=== PATIENT | male | born 1930 | race Caucasian/White ===

== ENCOUNTER 2017-02-09 16:45 | Emergency (ER) | payer MEDICARE ==
[2017-02-09 17:31] VITALS: BP 140/68
[2017-02-09] MEDS ORDERED: Lidocaine 1% MPF wEPI 200,000* 30 ML SDV INJ ONE (17:57)
[2017-02-09] MEDS ORDERED: Tetan/Diph/Pertus SYR(Tdap)* 0.5 ML SYR(BOOSTRIX) use SYR IM ONE (17:58)
--- NOTE | 2017-02-09 18:03 | UC ---
Elbow Pain - HPI Summary HPI Summary: 86 yo male bumped and braided right elbow 2 days ago no red and swollen he is right handed unsure of last tetanus - History of Current Complaint Chief Complaint: UCUpperExtremity Stated Complaint: RIGHT ELBOW FLUID ACCUMULATION S/P FALL Time Seen by Provider: 02/09/17 17:30 Hx Obtained From: Patient Onset/Duration: Days Severity Initially: Mild Severity Currently: Mild Pain Intensity: 1 Pain Scale Used: 0-10 Numeric Location Of Pain: Is Discrete @ - right point of elbow Character: Dull Alleviating Factor(s): Rest Associated Signs And Symptoms: Positive: Swelling, Redness - Allergies/Home Medications Allergies/Adverse Reactions: Allergies Allergy/AdvReac Type Severity Reaction Status Date / Time No Known Allergies Allergy Verified 02/09/17 17:18 PMH/Surg Hx/FS Hx/Imm Hx Previously Healthy: Yes Cardiovascular History: Other Other Cardiovascular History: heart murmur Neurological History: CVA Cancer History: Prostate Cancer Other History Of: Negative For: HIV, Hepatitis B, Hepatitis C, Anticoagulant Therapy - Surgical History Surgical History: Yes Surgery Procedure, Year, and Place: prostate removed, hernia, gall bladder removed - Family History Known Family History: Positive: Hypertension, Diabetes - Social History Alcohol Use: Weekly Substance Use Type: None Smoking Status (MU): Never Smoked Tobacco - Immunization History Most Recent Influenza Vaccination: NONE Most Recent Tetanus Shot: unk Most Recent Pneumonia Vaccination: NONE Review of Systems Constitutional: Negative Skin: Negative Eyes: Negative ENT: Negative Respiratory: Negative Cardiovascular: Negative Gastrointestinal: Negative Genitourinary: Negative Motor: Negative Neurovascular: Negative Musculoskeletal: Arthralgia Neurological: Negative Psychological: Negative All Other Systems Reviewed And Are Negative: Yes Physical Exam Triage Information Reviewed: Yes Appearance: Well-Appearing, No Pain Distress, Well-Nourished Vital Signs: Initial Vital Signs Temp 98.7 F 02/09/17 17:20 Pulse 58 02/09/17 17:20 Resp 18 02/09/17 17:20 BP 140/68 02/09/17 17:20 Pulse Ox 98 02/09/17 17:20 Vital Signs Reviewed: Yes Eyes: Positive: Conjunctiva Clear ENT: Negative: Hearing grossly normal, Nasal congestion, Nasal drainage, Trismus , Muffled/hoarse voice Neck: Positive: Supple, Nontender Respiratory: Positive: Lungs clear, Normal breath sounds, No respiratory distress Cardiovascular: Positive: RRR. Negative: No Murmur Musculoskeletal: Positive: Other: - see image Procedures - Procedure Summary Procedure Summary: Apiration of right olecranon bursa time out sterile prep anesth with 1% lido + epi 7 cc serosanginous fluid aspirated and sent for culture sterile dressing zoltan wrap Elbow Pain Course/Dx - Differential Dx/Diagnosis Provider Diagnoses: olecranon bursitis right. ? septic olecranon bursitis Discharge - Discharge Plan Condition: Stable Disposition: HOME Prescriptions: Cephalexin CAP* [Keflex CAP*] 500 mg PO QID #28 cap Patient Education Materials: Elbow Bursitis (ED) Referrals: Selwyn Glaser MD [Medical Doctor] - 2 Days (2-7 days) Additional Instructions: because of the abrasion over your right elbow I am concerned that your bursitis is due to an infection I suggest you see Dr. Glaser in follow up (orthopedist) Images Front/Back of Body, Lg ([place]): 1 - red/warm/swollen
== END 2017-02-09 18:34 | disposition home or self-care (01) ==
LOC: UCCORT 16:45
DX: M70.31 Other bursitis of elbow, right elbow (principal); W22.8XXA Striking against or struck by other objects, initial encounter; Y92.9 Unspecified place or not applicable
CPT/HCPCS: 87070; 87205; 90471; 90715; 99212; G0463; J2001